=== PATIENT | female | born 1955 | race Caucasian/White ===

== ENCOUNTER 2018-07-22 09:52 | Inpatient (IN) | payer BC, OTHER ==
[~2018-07-22] VITALS: Ht 157.5 cm; Wt 101.2 kg
[~2018-07-22 09:52] MED LIST: ASPIRIN LOW DOS81 MG PO; Z COREG PO; Z.0.ATORVASTATIN CA2; Z.0.CENTRUM SILVER1 PO; Z.0.FUROSEMIDE20 MG PO; Z.0.LISINOPRIL5 MG PO; Z.0.NEXIUM40 MG PO; Z.0.ONGLYZA5 MG PO; Z.0.TRICOR145 MG PO; Z.1.METFORMIN HCL100 PO; [UNRECOGNIZED DRUG - OTHER]
[2018-07-22 11:34] LABS: BASOPHILS # (AUTO) 0.1 (0.0-0.1); BASOPHILS % 0.5 % (0.0-1.0); EOSINOPHILS # (AUTO) 0.1 (0.0-0.4); EOSINOPHILS % 0.4 % (0.0-6.0); HEMATOCRIT 39.2 % (34.2-44.1); HEMOGLOBIN 12.6 g/dL (12.0-16.0); LYMPHOCYTES # (AUTO) 1.4 (1.0-3.2); MEAN CORPUSCULAR HEMOGLOBIN 27.9 pg (28-32); MEAN CORPUSCULAR HGB CONC 32.1 g/dL (31-35); MEAN CORPUSCULAR VOLUME 86.7 fL (81-99); MONOCYTES # (AUTO) 1.4 (0.2-0.8); MONOCYTES % 9.2 % (4.4-11.3); NEUTROPHILS # (AUTO) 12.4 (2.1-6.9); NEUTROPHILS % 80.4 % (38.7-80.0); PLATELET COUNT 431 x10e3/uL (140-360); RED BLOOD COUNT 4.52 x10e6/uL (3.6-5.1); RED CELL DISTRIBUTION WIDTH 13.5 % (11.7-14.4)
[2018-07-22 11:36] LABS: BILIRUBIN,URINE SMALL (NEGATIVE); CLARITY,URINE SL CLOUDY (CLEAR); COLOR,URINE ORANGE (YELLOW); KETONES,URINE TRACE (NEGATIVE); LEUKOCYTE ESTERASE ,URINE SMALL (NEGATIVE); NITRITE,URINE NEGATIVE (NEGATIVE); PROTEIN,URINE DIPSTICK 2+ (NEGATIVE); URINE UROBILINOGEN 1 mg/dL (0.2 - 1)
[2018-07-22 11:51] LABS: BACTERIA,URINE MODERATE /HPF; EPITHELIAL CELLS,URINE FEW /LPF
[2018-07-22 11:52] LABS: ALANINE AMINOTRANSFERASE 52 IU/L (0-55); ALBUMIN/GLOBULIN RATIO 0.6 (0.8-2.0); ALKALINE PHOSPHATASE 167 IU/L (40-150); AMORPHOUS SEDIMENT,URINE FEW (FEW); ANION GAP 13.5 mmol/L (8-16); BLOOD UREA NITROGEN 21 mg/dL (7-26); BUN/CREATININE RATIO 15 (6-25); CALCIUM 10.5 mg/dL (8.4-10.2); CARBON DIOXIDE 24 mmol/L (22-29); CHLORIDE 100 mmol/L (98-107); CREATINE KINASE 32 IU/L (29-168); CREATININE, SERUM 1.42 mg/dL (0.57-1.11); EST GLOMERULAR FILTRATION RATE 37 ML/MIN (60-); GLUCOSE 105 mg/dL (74-118); POTASSIUM 4.5 mmol/L (3.5-5.1); SODIUM 133 mmol/L (136-145)
[2018-07-22 11:59] LABS: INFLUENZAE A&B ANTIGEN (RAPID) NEGATIVE (NEGATIVE); STREPTOCOCCUS GRP A ANTIGEN NEGATIVE (NEGATIVE)
[2018-07-22] MEDS ORDERED: SODIUM CHLORIDE 0.9% 1000ML 1,000 ML IV ONE ×2 (12:00→15:00)
--- NOTE | 2018-07-22 12:02 | Diagnostic Imaging Report ---
Chest, 2 views, 07/22/2018. History: Cough and congestion. Comparison: None available. Findings: Cardiac silhouette is enlarged but the pulmonary vasculature is within normal limits. The lungs are clear without evidence of consolidation or pleural effusion. Degenerative changes are present throughout the thoracic spine. There are no acute osseous or soft tissue abnormalities. Impression: Cardiomegaly without acute pulmonary abnormality. Signed by: Arian Marquez on 07/22/2018 11:58 AM
--- NOTE | 2018-07-22 13:29 | NUR ---
PT STATES SHE HAS A HISTORY OF A FIB AND DID NOT TAKE ANY OF HER MEDICATIONS TODAY
[2018-07-22] MEDS ORDERED: CEFTRIAXONE SOD 1 GM/NS 50 ML 50 ML IV ONE (14:15)
--- NOTE | 2018-07-22 14:21 | Diagnostic Imaging Report ---
EXAMINATION: CT of the abdomen and pelvis with contrast. TECHNIQUE: Spiral CT images of the abdomen and pelvis were performed from the lung bases to the lesser trochanters after the intravenous administration of 100 cc Isovue-370. Coronal and sagittal reformatted images were obtained. COMPARISON: Chest radiograph same day CLINICAL HISTORY:Abdominal pain DISCUSSION: ABDOMEN/PELVIS: LOWER THORAX:Unremarkable. HEPATOBILIARY: No focal hepatic lesions. No intra-or extrahepatic biliary ductal dilation. The gallbladder has been removed. SPLEEN: No splenomegaly. PANCREAS: No focal masses or ductal dilatation. ADRENALS: No adrenal nodules. KIDNEYS/URETERS: Multiple wedge-shaped foci of hypoattenuation in the left kidney with associated perinephric fat stranding. Exophytic subcentimeter hypoattenuating lesion is too small to further characterize but likely represent small cysts. No hydronephrosis. No calculi. The right kidney is unremarkable. PELVIC ORGANS/BLADDER: Urinary bladder is incompletely distended but otherwise unremarkable. Uterus is neutral in position and appears normal. No adnexal mass. PERITONEUM/RETROPERITONEUM: No free air or fluid. LYMPH NODES: No pelvic sidewall, retroperitoneal, or mesenteric lymphadenopathy. VESSELS: Abdominal aorta, major branch vessels, and iliac arterial systems are patent without aneurysmal dilatation. Portal vein, splenic vein, and central superior mesenteric vein are patent. GI TRACT: The large bowel shows no distention or wall thickening. There are a few diverticula scattered along the descending and sigmoid colon without adjacent inflammatory change. Appendix is normal. The stomach is collapsed with prominence of the rugal folds. No small bowel dilatation to suggest obstruction. BONES AND SOFT TISSUE: No osseous destructive lesions. Mild degenerative disc changes and facet arthropathy of the lumbar spine. No focal soft tissue abnormalities. IMPRESSION: Findings suggestive of left pyelonephritis. Correlate with urinalysis. A follow-up CT abdomen with and without contrast (renal protocol) is suggested in 3 months to exclude presence of underlying mass lesion. Large bowel diverticulosis without findings of diverticulitis. Signed by: Dr. Cayetano Vyas M.D. on 07/22/2018 2:18 PM
[2018-07-22] MEDS ORDERED: SODIUM CHLORIDE 0.9% 1000ML 1,000 ML ONE (14:51)
[2018-07-22] MEDS: SODIUM CHLORIDE 0.9% 1000ML 1,000 ML IV SCH (15:13)
[2018-07-22] MEDS ORDERED: ONDANSETRON HCL INJ 2MG/ML 2ML 2 MG/ML VIAL IV PRN (15:15)
[2018-07-22] MEDS ORDERED: SODIUM CHLORIDE 0.9% 50ML 50 ML ONE (15:34)
[2018-07-22] MEDS ORDERED: IOPAMIDOL 370 MG/ML 200 ML INFUS..BTL INJ ONE (15:35)
--- OUTSIDE RECORDS SUMMARY | 2018-07-22 16:20 | XMS REPORT ---
[facility] Address Unknown Phone Unavailable Care Team Providers Care Funeral Director'S Assistant Name Role Phone lEia HARRISON Unavailable Unavailable Problems This patient has no known problems. Allergies, Adverse Reactions, Alerts This patient has no known allergies or adverse reactions. Medications This patient has no known medications. Results Test Description Test Time Test Comments Text Results Atomic Results Result Comments CT ABDOMEN/PELVIS W 2018-07-22 14:10:00 [place] [address] Patient Name: ANA VASQUES MR #: [id number] : 1955 Age/Sex: 62/F Req #: [id number] Adm Physician: Ordered by: SUKHWINDER BROWN HEDGE TRIMMER Report #: [id number] Location: ER Room/Bed: Procedure: [id number] CT/CT ABDOMEN/PELVIS W Exam Date: 07/22/18 Exam Time: 1340 REPORT STATUS: Signed EXAMINATION: CT of the abdomen and pelvis with cont rast. TECHNIQUE: Spiral CT images of the abdomen and pelvis were performed from the lung bases to the lesser trochanters after the intravenous administration of 100 cc Isovue-370. Coronal and sagittal reformatted images were obtained. COMPARISON: Chest radiograph same day CLINICAL HISTORY:Abdominal pain DISCUSSION: ABDOMEN/PELVIS: LOWER THORAX:Unremarkable. HEPATOBILIARY: No focal hepatic lesions. No intra-or extrahepatic biliary ductal dilation. The gallbladder has been removed. SPLEEN: No splenomegaly. PANCREAS: No focal masses or ductal dilatation. ADRENALS: No adrenal nodules. KIDNEYS/URETERS: Multiple wedge-shaped foci of hypoattenuation in the left kidney with associated perinephric fat stranding. Exophytic subcentimeter hypoattenuating lesion is too small to further characterize but likely represent small cysts. No hydronephrosis. No calculi. The right kidney is unremarkable. PELVIC ORGANS/BLADDER: Urinary bladder is incompletely distended but otherwise unremarkable. Uterus is neutral in position and appears normal. No adnexal mass. PERITONEUM/RETROPERITONEUM: No free air or fluid. LYMPH NODES: No pelvic sidewall, retroperitoneal, or mesenteric lymphadenopathy. VESSELS: Abdominal aorta, major branch vessels, and iliac arterial systems are patent without aneurysmal dilatation. Portal vein, splenic vein, and central superior mesenteric vein are patent. GI TRACT: The large bowel shows no distention or wall thickening. There are a few diverticula scattered along the descending and sigmoid colon without adjacent inflammatory change. Appendix is normal. The stomach is collapsed with prominence of the rugal folds. No small bowel dilatation to suggest obstruction. BONES AND SOFT TISSUE: No osseous destructive lesions. Mild degenerative disc changes and facet arthropathy of the lumbar spine. No focal soft tissue abnormalities. IMPRESSION: Findings suggestive of left pyelonephritis. Correlate with urinalysis. A follow-up CT abdomen with and without contrast (renal protocol) is suggested in 3 months to exclude presence of underlying mass lesion. Large bowel diverticulosis without findings of diverticulitis. Signed by: Dr. Lauri Webb M.D. on 07/22/2018 2:18 PM Dictated By: LAURI WEBB MD [id number] Transcribed By: ABIMAEL on 07/22/18 1418 COPY TO: SUKHWINDER BROWN NP CHEST 2 VIEWS 2018-07-22 11:58:00 [place] [address] Patient Name: ANA VASQUES MR #: [id number] : 1955 Age/Sex: 62/F Req #: [id number] Adm Physician: Ordered by: MELA HARRISON MD Report #: [id number] Location: ER Room/Bed: Procedure: [id number] DX/CHEST 2 VIEWS Exam Date: 07/22/18 Exam Time: 1110 REPORT STATUS: Signed Chest, 2 views, 07/22/2018. History: Cough and congestion. Comparison: None available. Findings: Cardiac silhouette is enlarged but the pulmonary vasculature is within normal limits. The lungs are clear without evidence of consolidation or pleural effusion. Degenerative changes are present throughout the thoracic spine. There are no acute osseous or soft tissue abnormalities. Impression: Cardiomegaly without acute pu lmonary abnormality. Signed by: Arian Marquez on 07/22/2018 11:58 AM Dictated By: ARIAN MARQUEZ MD 1158 Transcribed By: ABIMAEL on 07/22/18 1159 COPY TO: MELA HARRISON MD
--- NOTE | 2018-07-22 16:50 | NUR ---
Received patient aaox3, family at bedside, patient on room air, no s/s of distress, fluids running at 125ml/hr, IVs on both AC without any complications. Helped transfer to recliner from wheelchair. Call kilgore within reach.
[2018-07-22 17:26] VITALS: BP 103/57
[2018-07-22] MEDS ORDERED: METOPROLOL TARTRATE INJ 1 MG/ML VIAL IV PRN (17:30)
[2018-07-22] MEDS ORDERED: CEFEPIME 1GM/NS 0.9% 50 ML 50 ML IV SCH (17:30)
[2018-07-22] MEDS ORDERED: DEXTROSE 50% SYRINGE 50 ML IV PRN (17:30)
[2018-07-22] MEDS ORDERED: DOCUSATE SODIUM 100 MG CAP PO PRN (17:30)
[2018-07-22] MEDS ORDERED: ACETAMINOPHEN 325 MG TAB PO PRN (17:30)
[2018-07-22] MEDS ORDERED: ONDANSETRON HCL 4 MG ORAL DISINTEGRATING TAB PO PRN (18:00)
[2018-07-22] MEDS: PIPER-TAZ 3.375 GM 50 ML IV SCH (18:33)
[2018-07-22] MEDS ORDERED: TRADJENTA5 MG PO (18:47)
[2018-07-22] MEDS ORDERED: LISINOPRIL10 MG PO (18:47)
[2018-07-22] MEDS ORDERED: GLIMEPIRIDE2 MG PO (18:47)
[2018-07-22] MEDS ORDERED: SYNTHROID50 MCG PO (18:47)
[2018-07-22] MEDS ORDERED: FUROSEMIDE20 MG PO (18:47)
[2018-07-22] MEDS ORDERED: FENOFIBRATE145 MG PO (18:47)
[2018-07-22] MEDS ORDERED: GLUCOSAMINE1000 MG PO (18:47)
[2018-07-22] MEDS ORDERED: ULORIC40 MG PO (18:47)
[2018-07-22] MEDS ORDERED: NEXIUM40 MG PO (18:47)
[2018-07-22] MEDS ORDERED: METFORMIN HCL500 MG PO (18:47)
[2018-07-22] MEDS ORDERED: eliquis PO (18:47)
--- NOTE | 2018-07-22 18:50 | NUR ---
PATIENT IS LAYING IN BED RESTING WITH EYES OPENED. NO S/S OF DISTRESS. EXPLAINED TO PATIENT TO ASK FOR ASSISTANCE WHEN NEEDED. SIDE RAILS UP X2, CALL GORE WITHIN REACH, AND BED IN LOWEST POSITION.
--- NOTE | 2018-07-22 19:15 | NUR ---
Rounding done & report received. Patient is resting in bed comfortably. Respirations even & unlabored, no distress noted. IV fluids running to R AC, patent & no infiltration noted. Patient requested to have L AC IV removed, advised patient to leave it in place just in case other IV goes bad, patient agreed to leave it in place. Patient c/o H/A, rates pain level 4/10, describes it as a throbbing pain. Will check emar if any pain meds are available. Call light within reach, side rails x2 raised & bed set to lowest position.
[2018-07-22 20:00] VITALS: BP 98/55
--- NOTE | 2018-07-22 20:11 | History and Physical ---
PRESENTING COMPLAINT: Generalized weakness with numbness of both hands and feet for 3 days, got worsened today with mild abdominal pain. HISTORY OF PRESENT ILLNESS: A 62-year-old female, who was admitted from ER. The patient was sent to ER from the office of her PCP, Dr. Mars Ramsey. The patient tells that she was feeling unusually weak with mild numbness in her hands and feet since 3 days ago. Symptoms were off and on. Today, she felt more weak with discomfort in her abdomen. The patient denied any high spiking fever, chills, or rigor at home. She also denied any nausea, vomiting, or diarrhea. She had normal bowel movement today. She also denied any dysuria or hematuria. The patient told that she had dyspepsia affecting whole abdomen this morning for which she went to see her PCP. They found she had UTI, sent her to the ER. The patient was found having low grade fever with leukocytosis of 15,000. The patient had CT of the abdomen and pelvis with contrast, which was suggestive of left pyelonephritis. Urinalysis showed wbc more than 11 and the rbc also more than 11. The patient denied any similar episode in the past. She does not have any history of nephrolithiasis as per the patient's statement. The patient is now sitting in chair at bedside. She has multiple comorbidities including diabetes, hypertension, CHF, and chronic atrial fibrillation. The patient's EKG showed AFib with RVR more than 140 beats per minute. The patient follows up with her regular Cardiology, Dr. Walden, who does not come to this hospital. REVIEW OF SYSTEMS: CONSTITUTIONAL: No fever, chills, or rigor. EYES AND ENT: No nasal congestion. No sore throat. No earache. No visual disturbance. CARDIOVASCULAR: No chest pain, palpitation, or shortness of breath. PULMONARY: No cough. No hemoptysis. GI: Diffuse abdominal discomfort. No nausea. No vomiting. No diarrhea. No episode of bloody stool or black stool. : No dysuria. No hematuria. MUSCULOSKELETAL/SKIN/LYMPHORETICULAR: The patient felt numbness in the hands and feet for last 3 days. No joint swelling. No joint pain. No skin rash. No swollen glands. NEUROLOGIC: No loss of consciousness, seizures, or headache. HISTORY OF PAST MEDICAL ILLNESS: Diabetes mellitus type 2, hypertension, hyperlipidemia, probable CAD, CHF, and chronic atrial fibrillation on Eliquis. No history of acute CO, stroke, or cancer as per the patient's statement. Osteoporosis and osteoarthritis. HISTORY OF PAST SURGERIES: Laparoscopic cholecystectomy in remote past, tubal ligation, and right foot closed reduction for fracture from accidental fall. No other history of surgery. Colonoscopy done less than 5 years ago at this hospital by Dr. Mcneil as per the patient's statement. ALLERGIES: NO KNOWN MEDICATION ALLERGIES. HOME MEDICATIONS: List includes: 1. Coreg CR 10 mg daily. 2. Atorvastatin 20 mg daily. 3. Fenofibrate 145 mg daily. 4. Furosemide 20 mg daily. 5. Aspirin 81 mg daily. 6. Nexium 40 mg daily. 7. Lisinopril 5 mg daily. 8. Metformin 1000 mg b.i.d. 9. Onglyza 5 mg daily. 10. Glimepiride 1 mg daily. 11. Ferrous sulfate 142 mg daily. SOCIAL HISTORY: The patient lives at home at [place], [place] with her . She has 3 adult offsprings. She works as check cashier in a food store. HABITS: Denies smoking, drinking, or substance abuse history. FAMILY HISTORY: The patient's mother of breast cancer in her 40's. Her father of old age. Her brothers and sisters are alive and healthy. No positive family history of kidney stone as per the patient's statement. HEALTH PROTECTION: Colonoscopy less than 5 years ago. Mammogram after the flue shot, not this season. PHYSICAL EXAMINATION: VITAL SIGNS: Today; BP 106/60, now 93/99, pulse 129 beats per minute at presentation, temperature 99.3, respirations 20s, and SpO2 95% at room air. GENERAL: Alert, not in acute distress now, sitting at bedside. HEENT: No pallor. No icterus. Oral mucosa moist. NECK: No JVD. No carotid bruit. No lymphadenopathy. No thyromegaly. HEART: S1 and S2, irregular. No murmur. LUNGS: Air entry equal on both sides. No crackles. No rhonchi. ABDOMEN: Soft. No rebound tenderness. Mild diffuse tenderness. No flank tenderness. No palpable masses. Bowel sounds active in all quadrants. EXTREMITIES: No edema, cyanosis, or clubbing. NEUROLOGIC: Muscle strength symmetric on both sides. Speech normal. LABORATORY DATA: EKG, atrial fibrillation at the rate of 129 beats per minute. CBC; WBC 15.3, hemoglobin 12.6, hematocrit 39.2, platelets 432, MCV 86, RDW 13, neutrophils 80, and lymphocytes 9. Chemistry panel; sodium 133, potassium 4.5, chloride 100, CO2 24, anion gap 9, BUN 21, creatinine 1.42, glucose 105, lactic acid 6.6, calcium 10.5, total bilirubin 1.1, AST 65, ALT 52, and alkaline phosphatase 167. CK 32, CK-MB 0.3. Troponin 0.001. Total protein 8.1, albumin 3.0, and globulin 5.1. Urinalysis; glucose 3+, ketone trace, protein 2+, nitrite negative, leukocyte esterase small, wbc 11 to 20, rbc 11 to 20, bacteria moderate. Influenza screening negative. MICROBIOLOGICAL DATA: Blood culture in progress. Urine culture pending. RADIOLOGICAL DATA: X-ray of chest, single view, cardiomegaly. Pulmonary vasculature within normal limits. Lungs clear without evidence of consolidation or pleural effusion. Degenerative changes in the spine. No acute osseous or soft tissue abnormalities. CT of the abdomen and pelvis with IV contrast multiple wedge-shaped foci of hypoattenuation in the left kidney with associated perinephric fat stranding, exophytic subcentimeter hypoattenuating lesion is too small to further characterize, but likely represents small cysts. No hydronephrosis. No calculi. Right kidney is unremarkable. Urinary bladder is completely distended and unremarkable. Uterus is neutral in position. No adnexal mass. Few diverticula scattered in descending and sigmoid colon without any inflammatory change. No focal hepatic lesion. No intra or extrahepatic biliary ductal dilatation. Gallbladder has been removed. Findings suggestive of left pyelonephritis, large bowel diverticulosis without diverticulitis. ASSESSMENT AND PLAN: 1. Abdominal discomfort with leukocytosis and nausea likely secondary to left pyelonephritis. Urinalysis is suggestive of urinary tract infection. CT abdomen is positive for left kidney pyelonephritis. We will continue the patient on IV antibiotics. Follow the urine and blood culture report. Would request Urology evaluation by Dr. Cain. 2. Urinary tract infection, likely secondary to pyelonephritis and infection. We will monitor for now. Keep the patient on IV fluids. 3. Hypotension. The patient's lactic acid level is normal. She is afebrile now, has low-grade temperature in the morning. We will keep the patient on IV normal saline for now. 4. Chronic atrial fibrillation with rapid ventricular rate. The patient's extension edger Dr. Walden does not come to this hospital. Her troponin level is normal. Would continue her regular medication. Continue telemetry. Would request Cardiology evaluation by Dr. Barak Ramsey for now. 5. Diabetes mellitus, type 2. Would hold metformin due to acute kidney injury. Continue the patient's sliding scale insulin. Check hemoglobin A1c. 6. Elevated liver enzymes. The patient is status post cholecystectomy. CT of the abdomen does not show any liver lesion, likely related to fatty liver. 7. Hyperlipidemia. Continue the patient's regular medication. 8. GI prophylaxis. Keep the patient on regular Nexium. 9. Congestive heart failure by history. Would hold furosemide for now due to acute kidney injury and chest x-ray negative for any Pulmonary congestion. 10. Discharge planwould depend upon the patient's response to treatment. 11. Advance directive, the patient is full code for now. MD DINO Corey/MARLIN /[id number]
[2018-07-22 20:56] LABS: CREATINE KINASE MB 0.2 ng/mL (0-5.0)
[2018-07-22] MEDS: METOPROLOL TARTRATE 25 MG TAB PO SCH (21:00)
[2018-07-22] MEDS: INSULIN LISPRO 100 UNIT/1 ML 3ML VIAL SQ SCH (21:00)
--- NOTE | 2018-07-22 21:50 | NUR ---
Blood glucose was noted to be at 56, sandwich, mariann crackers & orange juice was provided.
[2018-07-22] MEDS: ATORVASTATIN 20 MG TAB PO SCH (21:58)
--- NOTE | 2018-07-22 22:00 | NUR ---
Spoke w/ Dr. Marcin Ramsey in regards to patient's low BP, informed him SB has been running in the 80's & DB in the 50's, also informed him patient continues to run AFib between the low 100's up to high 130's. Did hold scheduled metoprolol. No new orders received, just advised to keep patient on fluids and continue to monitor patient.
[2018-07-23] VITALS (8 sets, daily range): BP systolic 77–116; BP diastolic 54–72
[2018-07-23] MEDS: SODIUM CHLORIDE 0.9% 1000ML 1,000 ML IV SCH ×4 (00:30→22:08)
[2018-07-23] MEDS: PIPER-TAZ 3.375 GM 50 ML IV SCH ×4 (00:30→17:10)
[2018-07-23] MEDS ORDERED: CEFTRIAXONE SOD 1 GM/NS 50 ML 50 ML IV SCH (02:00)
[2018-07-23 07:21] LABS: BASOPHILS % 0.4 % (0.0-1.0); EOSINOPHILS # (AUTO) 0.1 (0.0-0.4); HEMATOCRIT 33.4 % (34.2-44.1); HEMOGLOBIN 10.6 g/dL (12.0-16.0); LYMPHOCYTES % 8.6 % (18.0-39.1); MEAN CORPUSCULAR HEMOGLOBIN 27.9 pg (28-32); MEAN CORPUSCULAR HGB CONC 31.7 g/dL (31-35); MEAN CORPUSCULAR VOLUME 87.9 fL (81-99); MONOCYTES % 8.7 % (4.4-11.3); NEUTROPHILS # (AUTO) 9.2 (2.1-6.9); NEUTROPHILS % 80.7 % (38.7-80.0); PLATELET COUNT 355 x10e3/uL (140-360); RED CELL DISTRIBUTION WIDTH 13.6 % (11.7-14.4)
[2018-07-23] MEDS: INSULIN LISPRO 100 UNIT/1 ML 3ML VIAL SQ SCH ×5 (07:30→21:00)
--- NOTE | 2018-07-23 07:30 | NUR ---
Patient is laying down with no s/s of distress. Patient on room air, IVs to both AV dry and intact. Fluids running. Bed in lowest position, side rails up x2, call kilgore within reach.
[2018-07-23 07:31] LABS: INR 1.11; PROTHROMBIN TIME 14.8 seconds (11.9-14.5)
[2018-07-23 07:37] LABS: ALBUMIN 2.3 g/dL (3.5-5.0); ALBUMIN/GLOBULIN RATIO 0.5 (0.8-2.0); ANION GAP 10.9 mmol/L (8-16); CALCIUM 8.8 mg/dL (8.4-10.2); CREATININE, SERUM 0.97 mg/dL (0.57-1.11); POTASSIUM 3.9 mmol/L (3.5-5.1)
[2018-07-23 07:47] LABS: MAGNESIUM 1.3 MG/DL (1.3-2.1); PHOSPHORUS 2.3 MG/DL (2.3-4.7)
[2018-07-23 07:55] LABS: B-TYPE NATRIURETIC PEPTIDE2 229.3 pg/mL (0-100)
[2018-07-23 07:59] LABS: FREE T4 (FREE THYROXINE) 1.09 ng/dL (0.9-1.8); THYROID STIMULATING HORMONE 0.997 uIU/mL (0.350-4.940)
[2018-07-23 08:03] LABS: CREATINE KINASE 27 IU/L (29-168)
[2018-07-23] MEDS ORDERED: LUT PO SCH (09:00)
[2018-07-23] MEDS ORDERED: NON-FORMULARY MEDICATION (Esomeprazole Mag Trihydrate (Nexium) 40 MG) PO SCH (09:00)
[2018-07-23] MEDS ORDERED: MULTIVITAMINS W MINERALS PO SCH (09:00)
[2018-07-23] MEDS ORDERED: ASPIRIN 81 MG PO SCH (09:00)
[2018-07-23] MEDS: SAXAGLIPTIN HCL PO SCH (09:00)
[2018-07-23] MEDS: MULTIVITAMINS/MINERALS TAB PO SCH (09:35)
[2018-07-23] MEDS: PANTOPRAZOLE SOD 40 MG TABEC PO SCH (09:35)
[2018-07-23] MEDS: ASPIRIN 81 MG CHEW TAB PO SCH (09:35)
[2018-07-23] MEDS: FENOFIBRATE 145 MG TAB PO SCH (09:35)
[2018-07-23] MEDS: METOPROLOL TARTRATE 25 MG TAB PO SCH ×2 (09:35→19:30)
[2018-07-23] MEDS: APIXABAN 5 MG TABLET PO SCH ×2 (09:35→17:10)
--- NOTE | 2018-07-23 10:29 | Consultation ---
DATE OF CONSULTATION: 07/23/2018 Urology Consultation REASON FOR CONSULTATION: Pyelonephritis. HISTORY OF PRESENT ILLNESS: Hilary Villegas is a 62-year-old woman with a history of chronic microhematuria. She has never had a workup due to being too busy. The patient had what she thought was food poisoning. She reported that when that improved, the patient still had symptomatology and left flank discomfort. She reported to the emergency room, was admitted, was evaluated and admitted. The patient denies any spiking fevers, also having urinary tract infection in the primary physician's office. She reports both urge and stress type urinary incontinence. PAST MEDICAL AND SURGICAL HISTORY: 1. Diabetes mellitus. 2. Hypertension. 3. Congestive heart failure. 4. Chronic atrial fibrillation. 5. Osteoporosis. 6. Osteoarthritis. 7. Laparoscopic cholecystectomy. 8. Status post tubal ligation. 9. Right foot closed reduction for fracture from a fall. 10. Status post colonoscopy. 11. 4, para 3, with one child being born stillborn, all by vaginal delivery. FAMILY HISTORY: Noncontributory to the active urological problems. SOCIAL HISTORY: The patient denies smoking, ethanol, or drug use. She works as a front window cashier. She is . REVIEW OF SYSTEMS: Discussed as above in history of present illness and past medical history, otherwise negative for all systems. ALLERGIES: NONE KNOWN. CURRENT MEDICATIONS: Please refer the MAR. PHYSICAL EXAMINATION: GENERAL: Very pleasant woman sitting up in a chair eating breakfast. No apparent distress. VITAL SIGNS: She is currently afebrile. Her vital signs are currently stable. ABDOMEN: Soft, nondistended, nontender except slight discomfort in the left flank without true costovertebral angle tenderness. Kidneys are not palpable without hepatosplenomegaly. The patient is obese. For the remaining physical examination systems, please refer to the admission history and physical on the chart. LABORATORY STUDIES: White blood cell count is 11,340, hemoglobin 10.6, and platelets were 355,000. The patient did have a higher white blood cell count at 15,360 upon admission. The patient's sodium was slightly low at 135. Hemoglobin A1c is 7.8. Creatinine is normal at 0.97. Urinalysis is significant for 11 to 20 WBCs, 11 to 20 RBCs, moderate bacteria and few epithelial cells. CT scan of the abdomen and pelvis revealed left renal cyst and signs of left pyelonephritis. The patient's prior creatinine was 1.42. ASSESSMENT: 1. Left pyelonephritis. 2. Microhematuria. 3. Leukocytosis that is improving. 4. Obesity. 5. Anemia. 6. Hyponatremia that is improving. 7. Left renal cyst. 8. Acute renal failure that is improved. PLAN: 1. Intravenous antibiotics. 2. Awaiting urine cultures and blood cultures. 3. The patient will need ongoing urological followup. 4. The patient at some point will need cystoscopy and retrograde pyelograms. 5. Further imaging will need to be performed after several months to ensure the patient's kidneys heal completely. 6. Renal scanning may also be warranted as this type of condition can cause decrease in renal function. Thank you very much for involving us in the care of your patient. We will be happy to follow her along with you as well as an outpatient. Jair Cain MD [place]/MODL /[id number] cc: Yovanny Ramsey MD
--- NOTE | 2018-07-23 14:15 | NUR ---
Notified Tio Ramsey about patient HR being between 120-130's. He stated he is going to come see her to adjust her medications.
[2018-07-23 15:50] LABS: CREATINE KINASE 32 IU/L (29-168)
[2018-07-23] MEDS ORDERED: SODIUM CHLORIDE 0.9% 1000ML 1,000 ML ONE (17:04)
[2018-07-23] MEDS ORDERED: DIGOXIN INJ 0.25 MG/ML 2 ML AMP IV NR (18:15)
[2018-07-23] MEDS ORDERED: METOPROLOL TARTRATE 25 MG TAB PO SCH (18:15)
--- NOTE | 2018-07-23 18:25 | NUR ---
PATIENT IS LAYING DOWN RESTING WITH EYES OPENED. AT BEDSIDE. SIDE RAILS UP X2, CALL GORE WITHIN REACH, AND BED IN LOWEST POSITION. NO S/S OF DISTRESS.
--- NOTE | 2018-07-23 18:45 | Consultation ---
DATE OF CONSULTATION: 07/23/2018 Cardiology Consult Note REASON FOR CONSULT: AFib with RVR. CHIEF COMPLAINT: Abdominal pain and dysuria. HISTORY OF PRESENT ILLNESS: The patient is a 62-year-old female with history of paroxysmal atrial fibrillation, who presented with 2-day history of worsening abdominal pain and some dysuria, was found to have pyelonephritis with fever, elevated white count, and hypotension, concerning for sepsis. Yesterday evening, she went into AFib with RVR after admission. She has history of atrial fibrillation, which is paroxysmal. She also reports history of bradycardia when she is in normal sinus rhythm, which she has had for a long time. She was only taking low-dose of carvedilol at home along with Eliquis 5 mg b.i.d. for anticoagulation. Denies any history of any stents, CAD, or any other cardiovascular issues. She is followed by Dr. Walden and she has had yearly stress tests, which have been essentially normal. She had a catheterization many years ago, which she reports being normal. MEDICAL HISTORY: 1. Hypertension. 2. Hyperlipidemia. 3. Paroxysmal atrial fibrillation, on anticoagulation. SOCIAL HISTORY: She does not smoke, drink, or abuse drugs. FAMILY HISTORY: No family history of early CAD or sudden cardiac . OUTPATIENT MEDICATIONS: Reviewed. ALLERGIES: NO KNOWN DRUG ALLERGIES. REVIEW OF SYSTEMS: A 10-point review of systems as per HPI, otherwise negative. PHYSICAL EXAMINATION: VITAL SIGNS: Temperature 100.7, pulse 130, respiratory rate 20, blood pressure 116/56, and saturating 99% on room air. GENERAL: Obese white female, in no acute distress. CARDIOVASCULAR: Irregular rate and rhythm. No murmurs, rubs, or gallops. Tachycardic. LUNGS: Clear to auscultation bilaterally. ABDOMEN: Soft, nontender, nondistended. NEURO AND PSYCH: Alert and oriented to person, place, and time. Normal affect. INPATIENT MEDICATIONS: Reviewed. LABORATORY DATA: Reviewed. Troponins negative. Elevated white count of 15.36. IMAGING DATA: Reviewed. Chest x-ray without any cardiomegaly or pulmonary edema. TELEMETRY DATA: Reviewed, shows AFib with RVR, rates as high as 170s. ASSESSMENT: Atrial fibrillation with rapid ventricular response. PLAN: Increase dose of metoprolol to 25 mg q.6 hours. We will also start digoxin, already given dose of IV digoxin overnight. We will continue to finish digoxin load today and start 125 mcg daily starting tomorrow. Continue antibiotic therapy per primary team. We will resume home Eliquis. Thank you for this consult. We will continue to follow. MD SAQIB Bennett/JESSIEL /[id number]
--- NOTE | 2018-07-23 20:00 | NUR ---
Received change of shift report from AM nurse. Walking rounds completed.
[2018-07-23] MEDS: ATORVASTATIN 20 MG TAB PO SCH (21:00)
[2018-07-24] VITALS (8 sets, daily range): BP systolic 95–117; BP diastolic 55–69
[2018-07-24] MEDS: METOPROLOL TARTRATE 25 MG TAB PO SCH ×4 (01:00→17:13)
[2018-07-24] MEDS: SODIUM CHLORIDE 0.9% 1000ML 1,000 ML IV SCH ×3 (04:48→16:02)
[2018-07-24 05:34] LABS: BASOPHILS # (AUTO) 0.1 (0.0-0.1); BASOPHILS % 0.6 % (0.0-1.0); EOSINOPHILS # (AUTO) 0.1 (0.0-0.4); HEMATOCRIT 32.2 % (34.2-44.1); HEMOGLOBIN 10.5 g/dL (12.0-16.0); LYMPHOCYTES # (AUTO) 1.2 (1.0-3.2); LYMPHOCYTES % 10.1 % (18.0-39.1); MEAN CORPUSCULAR HEMOGLOBIN 28.2 pg (28-32); MEAN CORPUSCULAR HGB CONC 32.6 g/dL (31-35); MEAN CORPUSCULAR VOLUME 86.3 fL (81-99); MONOCYTES # (AUTO) 1.1 (0.2-0.8); MONOCYTES % 9.3 % (4.4-11.3); NEUTROPHILS # (AUTO) 9.1 (2.1-6.9); NEUTROPHILS % 78.6 % (38.7-80.0); PLATELET COUNT 416 x10e3/uL (140-360); RED BLOOD COUNT 3.73 x10e6/uL (3.6-5.1); RED CELL DISTRIBUTION WIDTH 13.7 % (11.7-14.4)
[2018-07-24] MEDS: PIPER-TAZ 3.375 GM 50 ML IV SCH ×4 (05:43→17:13)
[2018-07-24 06:03] LABS: ALANINE AMINOTRANSFERASE 62 IU/L (0-55); ALBUMIN 2.4 g/dL (3.5-5.0); ALBUMIN/GLOBULIN RATIO 0.5 (0.8-2.0); ALKALINE PHOSPHATASE 198 IU/L (40-150); ANION GAP 12.2 mmol/L (8-16); BLOOD UREA NITROGEN 10 mg/dL (7-26); BUN/CREATININE RATIO 11 (6-25); CALCIUM 9.1 mg/dL (8.4-10.2); CARBON DIOXIDE 20 mmol/L (22-29); CHLORIDE 105 mmol/L (98-107); CREATININE, SERUM 0.91 mg/dL (0.57-1.11); EST GLOMERULAR FILTRATION RATE > 60 ML/MIN (60-); GLUCOSE 140 mg/dL (74-118); LIPASE 40 U/L (8-78); POTASSIUM 4.2 mmol/L (3.5-5.1); SODIUM 133 mmol/L (136-145)
--- NOTE | 2018-07-24 06:35 | NUR ---
Patient resting quitly at this time.
--- NOTE | 2018-07-24 07:00 | NUR ---
SHIFT REPORT RECEIVED FROM CONE FORMER RN. PT DENIES NEEDS AT THIS TIME.
[2018-07-24] MEDS: INSULIN LISPRO 100 UNIT/1 ML 3ML VIAL SQ SCH ×4 (07:30→21:31)
[2018-07-24] MEDS: PANTOPRAZOLE SOD 40 MG TABEC PO SCH (08:01)
[2018-07-24] MEDS: FENOFIBRATE 145 MG TAB PO SCH (08:01)
[2018-07-24] MEDS: DIGOXIN 0.125 MG TAB PO SCH (08:02)
[2018-07-24] MEDS: APIXABAN 5 MG TABLET PO SCH ×2 (08:02→17:13)
[2018-07-24] MEDS: ASPIRIN 81 MG CHEW TAB PO SCH (08:03)
[2018-07-24] MEDS: MULTIVITAMINS/MINERALS TAB PO SCH (08:03)
[2018-07-24] MEDS: SAXAGLIPTIN HCL PO SCH (08:07)
--- NOTE | 2018-07-24 08:30 | NUR ---
LEFT AC IV REMOVED. TIP INTACT. BLEEDING STOPPED AND DRESSING APPLIED. PT DENIED FURTHER NEEDS.
[2018-07-24] MEDS ORDERED: APIXABAN 5 MG TABLET PO SCH (09:00)
[2018-07-24] MEDS: GLIMEPIRIDE 2 MG TAB PO SCH (14:00)
--- NOTE | 2018-07-24 18:24 | Progress Note ---
DATE: 07/24/2018 Cardiology Progress Note SUBJECTIVE: No major events overnight. Feels better. Continues to be in AFib with RVR. OBJECTIVE: VITAL SIGNS: Temperature afebrile, pulse 110, blood pressure 103/66, and saturating 97% on room air. GENERAL: Obese white female, in no acute distress. CARDIOVASCULAR: Irregular rate and rhythm. No murmurs, rubs, or gallops. Tachycardic. LUNGS: Clear to auscultation bilaterally. ABDOMEN: Soft, nontender, and nondistended. Obese. No masses. NEURO AND PSYCH: Alert and oriented to person, place, and time. Normal affect. INPATIENT MEDICATIONS: Reviewed. LABORATORY DATA: Reviewed. IMAGING DATA: Reviewed. TELEMETRY DATA: Reviewed. Continues to be in atrial fibrillation with RVR. Heart rate now in the 110 to 130 range. ASSESSMENT AND PLAN: Atrial fibrillation with rapid ventricular response. We will continue oral amiodarone and digoxin. Plan for MAX cardioversion tomorrow. Continue Eliquis. Thank you for this consult. We will continue to follow. MD SAQIB Bennett/MARLIN /[id number]
--- NOTE | 2018-07-24 19:00 | NUR ---
BEDSIDE SHIFT REPORT GIVEN TO THE FASHION CONSULTANT SELLING RN. PT DENIED FURTHER NEEDS.
[2018-07-24] MEDS: HC ACETATE/PRAMOXINE HCL 10 GM FOAM RC SCH (21:31)
[2018-07-24] MEDS: ATORVASTATIN 20 MG TAB PO SCH (21:31)
--- NOTE | 2018-07-24 23:03 | NUR ---
Left message with Dr Yovanny Ramsey office about new order to change admitting MD ( Spoke with Melinda)
--- NOTE | 2018-07-24 23:06 | NUR ---
Dr Yovanny Ramsey returned call: notified of new order to change admitting MD: states "okay"
[2018-07-25] VITALS (8 sets, daily range): BP systolic 95–118; BP diastolic 55–70
[2018-07-25] MEDS: PIPER-TAZ 3.375 GM 50 ML IV SCH ×4 (00:46→18:05)
[2018-07-25] MEDS: METOPROLOL TARTRATE 25 MG TAB PO SCH ×4 (00:47→18:05)
[2018-07-25] MEDS: SODIUM CHLORIDE 0.9% 1000ML 1,000 ML IV SCH ×3 (04:41→20:36)
[2018-07-25 05:32] LABS: BASOPHILS # (AUTO) 0.1 (0.0-0.1); BASOPHILS % 0.7 % (0.0-1.0); EOSINOPHILS # (AUTO) 0.3 (0.0-0.4); EOSINOPHILS % 3.2 % (0.0-6.0); HEMATOCRIT 29.5 % (34.2-44.1); HEMOGLOBIN 9.2 g/dL (12.0-16.0); LYMPHOCYTES # (AUTO) 1.1 (1.0-3.2); LYMPHOCYTES % 13.1 % (18.0-39.1); MEAN CORPUSCULAR HEMOGLOBIN 27.5 pg (28-32); MEAN CORPUSCULAR HGB CONC 31.2 g/dL (31-35); MEAN CORPUSCULAR VOLUME 88.3 fL (81-99); MONOCYTES # (AUTO) 0.8 (0.2-0.8); MONOCYTES % 10.3 % (4.4-11.3); NEUTROPHILS # (AUTO) 5.9 (2.1-6.9); NEUTROPHILS % 72.1 % (38.7-80.0); PLATELET COUNT 395 x10e3/uL (140-360); RED BLOOD COUNT 3.34 x10e6/uL (3.6-5.1); RED CELL DISTRIBUTION WIDTH 13.7 % (11.7-14.4)
[2018-07-25 05:52] LABS: ALANINE AMINOTRANSFERASE 49 IU/L (0-55); ALBUMIN 2.2 g/dL (3.5-5.0); ALBUMIN/GLOBULIN RATIO 0.5 (0.8-2.0); ALKALINE PHOSPHATASE 179 IU/L (40-150); ANION GAP 11.1 mmol/L (8-16); BLOOD UREA NITROGEN 8 mg/dL (7-26); BUN/CREATININE RATIO 10 (6-25); CARBON DIOXIDE 22 mmol/L (22-29); CHLORIDE 109 mmol/L (98-107); EST GLOMERULAR FILTRATION RATE > 60 ML/MIN (60-); GLUCOSE 130 mg/dL (74-118); POTASSIUM 4.1 mmol/L (3.5-5.1); SODIUM 138 mmol/L (136-145)
[2018-07-25] MEDS: INSULIN LISPRO 100 UNIT/1 ML 3ML VIAL SQ SCH ×4 (07:30→21:00)
[2018-07-25] MEDS: MULTIVITAMINS/MINERALS TAB PO SCH (08:55)
[2018-07-25] MEDS: DIGOXIN 0.125 MG TAB PO SCH (08:55)
[2018-07-25] MEDS: GLIMEPIRIDE 2 MG TAB PO SCH (08:55)
[2018-07-25] MEDS: PANTOPRAZOLE SOD 40 MG TABEC PO SCH (08:56)
[2018-07-25] MEDS: FENOFIBRATE 145 MG TAB PO SCH (08:56)
[2018-07-25] MEDS: APIXABAN 5 MG TABLET PO SCH ×2 (09:00→18:05)
[2018-07-25] MEDS: HC ACETATE/PRAMOXINE HCL 10 GM FOAM RC SCH ×3 (09:00→21:00)
[2018-07-25] MEDS: SAXAGLIPTIN HCL PO SCH (09:00)
[2018-07-25] MEDS ORDERED: BENZOCAINE 20% SPR 60 ML CAN ONE (11:47)
[2018-07-25] MEDS ORDERED: SODIUM CHLORIDE 0.9% 1000ML 1,000 ML ONE (11:48)
--- NOTE | 2018-07-25 12:20 | NUR ---
1205 - pt received for MAX/cardioversion from room 210, placed on bedside monitoring. pt positioned for procedure. IV site patent to right 20g right AC , VS wnl, afib rate [phone]- all responsible staff present, Timeout performed, 1210 - hurricaine spray (spray 1) to oral cavity by 1212 - hurricaine spray (spray 2) to oral cavity by MD 1214 - bite block positioned and MAX probe passed 1218- agitated saline injected for bubble study 1219 - MAX probe removed , no gross trauma or distress observed 1222 - pt cardioverted attempt #1 at 200 joules synchronized, unsuccessful 1224 - pt cardioverted attempt #2 at 200 joules synchronized, unsuccessful 1226 - defibrillator page pt cardioverted attempt #3 at 200 joules synchronized, unsuccessful 1228 - pt taken to CCL 9 for further recovery. skin inspection unremarkable.
[2018-07-25] MEDS: HYDROCORTISONE 2.5% PR CRM 1 OZ TUBE PR SCH ×2 (15:00→21:00)
--- NOTE | 2018-07-25 17:08 | Consultation ---
DATE OF CONSULTATION: Gastroenterology Consultation REFERRING PHYSICIAN: Dr. Leos. REASON FOR CONSULTATION: Rectal bleeding and anemia. HISTORY OF PRESENT ILLNESS: Ms. Villegas is a pleasant 62-year-old woman with below past medical history. She is awaiting cardioversion today. She is on Eliquis. She has a history of hemorrhoids, which have been going on for over 15 years. Just a couple of days now, she has been having increased bleeding from the hemorrhoids. The bleeding is separate from her stools and there is no blood in her stool or any black tarry stools. Hemoglobin has dropped from 12.6 to 9.2. She last had a colonoscopy about [address] Giles it sounds like. She does not have any abdominal pain, nausea, vomiting, or severe heartburn. PAST MEDICAL HISTORY: Diabetes, hypertension, dyslipidemia, coronary artery disease, suspected CHF, atrial fibrillation, and chronic anticoagulation. MEDICATIONS: Reviewed, please see [facility] medication reconciliation form. ALLERGIES: REVIEWED, PLEASE SEE [facility] MEDICATION RECONCILIATION FORM. REVIEW OF SYSTEMS: Twelve system review is positive for that mentioned in HPI that is unremarkable. PHYSICAL EXAMINATION: GENERAL: Calm, alert, sitting in bed. HEENT: Pupils are equal, round, and react to light. NECK: Supple. LUNGS: Clear. CARDIOVASCULAR: S1 and S2. ABDOMEN: Soft, nontender, and nondistended. Normal bowels sounds. EXTREMITIES: No clubbing, cyanosis, or edema. PSYCHIATRIC: Calm and cooperative. NEUROLOGIC: Nonfocal. HEMATOLOGIC: No bruising or adenopathy. Electronic health records reviewed for laboratory and radiologic studies as well as history. ASSESSMENT: Rectal Bleeding: It appears that she is having significant bleeding from large hemorrhoids. On review of her records from this hospital and from her H and P, that seems that she actually had been seen by Dr. Mcneil in the past and she had a colonoscopy in August 2011 in pulling up our outpatient record for Ms. Villegas. I do sign her records and a colonoscopy report from August of 2011, which showed diverticulosis and hemorrhoids only. A repeat colonoscopy in 10 years was recommended to her. Her previous colonoscopy from 2006 was the same, only diverticulosis and hemorrhoids. As she is currently not having any blood in her stool or melena or other GI complaint, we are going to say that it is likely hemorrhoidal bleeding. Going to go ahead and ask Surgery to see her regarding the hemorrhoids as they appear to be quite large per her report and would best be treated surgically. Thank you very much for asking me to see Ms. Villegas. Any questions or concerns, please do not hesitate to contact me. Cony Alaniz MD RLS/MARLIN /[id number]
--- NOTE | 2018-07-25 17:10 | NUR ---
Nutrition Screen Note RD Recommendation for Physician: -Continue ADA diet as ordered Plan of Care: RD following, monitoring for tolerance and adequacy Nutrition reason for involvement: Nutrition Risk Trigger MST Primary Diagnose(s): Left pyelonephritis. PMH: 1. Diabetes mellitus. 2. Hypertension. 3. Congestive heart failure. 4. Chronic atrial fibrillation. 5. Osteoporosis. 6. Osteoarthritis. 7. Laparoscopic cholecystectomy. 8. Status post tubal ligation. 9. Right foot closed reduction for fracture from a fall. 10. Status post colonoscopy. 11. 4, para 3, with one child being born stillborn, all by vaginal delivery. Ht: 62in Wt: 223lb BMI: 40.8kg/m2 IBW: 110lb RD Assessment: (07/25) Chart reviewed. Labs and meds reviewed. 62yo F, who was admitted for generalized weakness and abdominal pain. Visited pt in the room. Pt reported good appetite. No complains of nausea or vomiting. LBM 07/25. Pt denied any chewing or swallowing difficulty. Pt reported of 25lbs intentional weight loss through her doctor for the last few months. Will continue to monitor and follow. Current Diet: ADA 2000 Malnutrition Evaluation (07/25) The patient does not meet criteria for a specified degree of malnutrition at this time. Will re-evaluate at follow-up as appropriate. Diet Education Needs Assessment: Diet education not indicated. Nutrition Care Level: low Signed: Blessing Knight, MS, RD, LD
[2018-07-25] MEDS ORDERED: PROPOFOL IV EMULSION 10 MG/ML 20 ML VIAL ONE (17:43)
[2018-07-25] MEDS ORDERED: LIDOCAINE HCL 2% LOCAL INJ 5 ML SDV VIAL INJ ONE (17:43)
[2018-07-25] MEDS: ASPIRIN 81 MG CHEW TAB PO SCH (18:05)
[2018-07-25] MEDS ORDERED: MIDAZOLAM HCL 2 MG/2 ML VIAL ONE (18:54)
--- NOTE | 2018-07-25 20:24 | Progress Note ---
DATE: 07/25/2018 Cardiology Progress Note BODY AFTER ALLERGIES: SUBJECTIVE: MAX with attempted cardioversion this morning, however, the patient returned to atrial fibrillation within seconds of cardioversion. OBJECTIVE: VITAL SIGNS: Temperature afebrile, pulse 97, respiratory rate 19, blood pressure 118/54, and saturating 95% on room air. GENERAL: An obese white female, in no acute distress. CARDIOVASCULAR: Irregular rate and rhythm. No murmurs, rubs, or gallops. LUNGS: Clear to auscultation anteriorly. ABDOMEN: Soft, nontender, nondistended. No masses. NEURO AND PSYCH: Alert and oriented to person, place, and time. Normal affect. INPATIENT MEDICATIONS: Reviewed. LABORATORY DATA: Reviewed. IMAGING DATA: Reviewed. TELEMETRY DATA: Reviewed, shows atrial fibrillation with RVR, heart rate now improved from 97 to 105, down from about 130 this morning. ASSESSMENT: Atrial fibrillation with rapid ventricular response. PLAN: Continue digoxin. Increase metoprolol to 50 mg q.6 hours. Continue apixaban. Okay to discharge likely tomorrow from cardiovascular standpoint once heart rate is little better controlled. Thank you for this consult. We will continue to follow. MD SAQIB Bennett/MARLIN /[id number]
[2018-07-25] MEDS: ATORVASTATIN 20 MG TAB PO SCH (21:55)
[2018-07-26] MEDS: PIPER-TAZ 3.375 GM 50 ML IV SCH ×2 (00:57→05:43)
[2018-07-26] MEDS: METOPROLOL TARTRATE 25 MG TAB PO SCH ×2 (00:58→05:43)
[2018-07-26 04:28] VITALS: BP 120/76
[2018-07-26 05:33] LABS: BASOPHILS # (AUTO) 0.1 (0.0-0.1); BASOPHILS % 0.7 % (0.0-1.0); EOSINOPHILS # (AUTO) 0.3 (0.0-0.4); EOSINOPHILS % 3.8 % (0.0-6.0); HEMATOCRIT 29.7 % (34.2-44.1); HEMOGLOBIN 9.3 g/dL (12.0-16.0); LYMPHOCYTES # (AUTO) 0.8 (1.0-3.2); LYMPHOCYTES % 11.3 % (18.0-39.1); MEAN CORPUSCULAR HEMOGLOBIN 27.7 pg (28-32); MEAN CORPUSCULAR HGB CONC 31.3 g/dL (31-35); MEAN CORPUSCULAR VOLUME 88.4 fL (81-99); MONOCYTES # (AUTO) 0.7 (0.2-0.8); MONOCYTES % 9.6 % (4.4-11.3); NEUTROPHILS # (AUTO) 5.2 (2.1-6.9); NEUTROPHILS % 73.9 % (38.7-80.0); PLATELET COUNT 408 x10e3/uL (140-360); RED BLOOD COUNT 3.36 x10e6/uL (3.6-5.1); RED CELL DISTRIBUTION WIDTH 13.8 % (11.7-14.4)
[2018-07-26 06:10] LABS: ANION GAP 9.1 mmol/L (8-16); BLOOD UREA NITROGEN 9 mg/dL (7-26); BUN/CREATININE RATIO 11 (6-25); CARBON DIOXIDE 23 mmol/L (22-29); CHLORIDE 108 mmol/L (98-107); CREATININE, SERUM 0.83 mg/dL (0.57-1.11); EST GLOMERULAR FILTRATION RATE > 60 ML/MIN (60-); GLUCOSE 156 mg/dL (74-118); POTASSIUM 4.1 mmol/L (3.5-5.1); SODIUM 136 mmol/L (136-145)
[2018-07-26] MEDS: SODIUM CHLORIDE 0.9% 1000ML 1,000 ML IV SCH (07:17)
[2018-07-26 08:00] VITALS: BP 115/56
[2018-07-26] MEDS: HYDROCORTISONE 2.5% PR CRM 1 OZ TUBE PR SCH (08:55)
[2018-07-26] MEDS: FENOFIBRATE 145 MG TAB PO SCH (08:55)
[2018-07-26] MEDS: MULTIVITAMINS/MINERALS TAB PO SCH (08:55)
[2018-07-26] MEDS: APIXABAN 5 MG TABLET PO SCH (08:55)
[2018-07-26] MEDS: GLIMEPIRIDE 2 MG TAB PO SCH (08:55)
[2018-07-26] MEDS: SAXAGLIPTIN HCL PO SCH (08:56)
[2018-07-26] MEDS: HC ACETATE/PRAMOXINE HCL 10 GM FOAM RC SCH (08:56)
[2018-07-26] MEDS: INSULIN LISPRO 100 UNIT/1 ML 3ML VIAL SQ SCH (08:56)
[2018-07-26] MEDS: PANTOPRAZOLE SOD 40 MG TABEC PO SCH (08:56)
[2018-07-26] MEDS: DIGOXIN 0.125 MG TAB PO SCH (08:56)
[2018-07-26 08:58] VITALS: BP 115/56
--- NOTE | 2018-07-26 09:10 | NUR ---
Paged Dr. Marcin Ramsey regarding patient being discharged. Awaiting call back
--- NOTE | 2018-07-26 09:22 | NUR ---
Spoke to Dr. Marcin Ramsey, he said OK to continue with discharge today as heart rate is better controlled and patient needs to follow u with her bias binding cutter, Dr. Walden, in two weeks.
[2018-07-26] MEDS ORDERED: METOPROLOL TART50 MG PO (09:28)
[2018-07-26] MEDS ORDERED: DIGOXIN125 MCG PO (09:28)
[2018-07-26] MEDS ORDERED: CEFUROXIME500 MG PO (09:30)
--- NOTE | 2018-07-26 09:40 | NUR ---
Notified Dr. Herring that patient is being discharged and surgery consult has not yet seen the patient, she said patient can be seen as outpatient and OK to continue with discharge home.
--- NOTE | 2018-07-26 10:01 | NUR ---
Prescriptions and discharge instructions were given to the patient , she verbalized understanding, patient was instructed on changed to Metoprolol dose 100mg BID when taking at home, she verbalized understanding, also provided on dc instruction paperwork. She was also instructed to stop taking Coreg, she verbalized understanding. IV to the right AC was removed with tip intact.
== END 2018-07-26 10:02 | disposition home or self-care (01) | DRG 872 ==
LOC: ER 09:52 → ERHOLD 16:17 → MED/SURG2 16:49
PROVIDERS: ADMIT Internal Medicine; ATTEND Internal Medicine
PROC: 5A2204Z Restoration of Cardiac Rhythm, Single (ICD-10-PCS; principal; 2018-07-25)
PROC: B24BZZ4 Ultrasonography of Heart with Aorta, Transesophageal (ICD-10-PCS; 2018-07-25)
DX: A41.9 Sepsis, unspecified organism (principal); N10 Acute pyelonephritis; N17.9 Acute kidney failure, unspecified; Z68.41 Body mass index [BMI] 40.0-44.9, adult; E11.9 Type 2 diabetes mellitus without complications; E03.9 Hypothyroidism, unspecified; K21.9 Gastro-esophageal reflux disease without esophagitis; Z90.49 Acquired absence of other specified parts of digestive tract; Z82.49 Family history of ischemic heart disease and other diseases of the circulatory system; I48.2 Chronic atrial fibrillation; E78.5 Hyperlipidemia, unspecified; I11.0 Hypertensive heart disease with heart failure; I50.9 Heart failure, unspecified; E66.9 Obesity, unspecified; D64.9 Anemia, unspecified; N28.1 Cyst of kidney, acquired; K64.9 Unspecified hemorrhoids; B96.1 Klebsiella pneumoniae [K. pneumoniae] as the cause of diseases classified elsewhere; Z79.84 Long term (current) use of oral hypoglycemic drugs
CPT/HCPCS: 36415; 71046; 74177; 80048; 80053; 80061; 81001; 82550; 82553; 82948; 83036; 83518; 83605; 83690; 83735; 83880; 84100; 84439; 84443; 84484; 85025; 85610; 87040; 87070; 87086; 87186; 87400; 93005; 93312; 93320; 93325; 99284; J0696; J2001; J2250; J2543; J7030; Q9967

== ENCOUNTER → 2018-10-06 | Outpatient (CLI) | payer BC ==
[~2018-10-06] MED LIST changes: +CEFUROXIME500 MG PO; +CIPRO500 MG PO; +DIGOXIN125 MCG PO; +FENOFIBRATE145 MG PO; +FUROSEMIDE20 MG PO; +GLIMEPIRIDE2 MG PO; +GLUCOSAMINE1000 MG PO; +LISINOPRIL10 MG PO; +METFORMIN HCL500 MG PO; +METOPROLOL TART50 MG PO; +NEXIUM40 MG PO; +SYNTHROID50 MCG PO; +TRADJENTA5 MG PO; +ULORIC40 MG PO; +eliquis PO
--- NOTE | 2018-10-06 20:27 | Diagnostic Imaging Report ---
Renal Scan with Lasix Washout Clinical information: 40 F with UTI and hematuria Technique: Following intravenous administration of 10 mCi of Tc-99m MAG3, dynamic images of the kidneys in the posterior projection were obtained through 40 minutes. Lasix 40 mg was administered intravenously at 10 minutes post injection of the tracer. Report: Left kidney: Perfusion of the left kidney is prompt. The kidney has a reniform shape although overall appears reduced in size. Extraction of tracer from the blood pool is normal. Clearance of tracer from the renal parenchyma is prompt. The pelvicalyceal system is not dilated. Physiologic pooling of tracer is seen within the pelvicalyceal system. Drainage of tracer from the pelvicalyceal system is prompt and adequate prior to administration of Lasix. No significant stasis of tracer is seen within the left ureter. Right kidney: Perfusion to the right kidney is prompt. The right kidney has a reniform shape although overall appears reduced in size. Extraction of tracer by the renal parenchyma is normal. Clearance of tracer from the renal parenchyma is prompt. The pelvicalyceal system is not dilated. Physiologic pooling of tracer is seen within the pelvicalyceal system. Drainage of tracer from the pelvicalyceal system is prompt and adequate prior to administration of Lasix. No significant stasis of tracer is seen within the right ureter. Differential renal function: The left kidney contributes 52% of total renal function and the right kidney contributes 48% (normal 43-57%). Impression: 1. Mild reduction in overall size of kidney may be related to early medical renal disease. The function of the left kidney is generally normal. No hydronephrosis is present. No physiologically significant obstruction of the renal collecting system is present. 2. Mild reduction in overall size of kidney may be related to early medical renal disease. The function of the right kidney is generally normal. No hydronephrosis is present. No physiologically significant obstruction of the renal collecting system is present. 3. The differential renal function is preserved. Signed by: Dr. Leslee Morales M.D. on 10/06/2018 8:24 PM
== END ==
LOC: NM 12:18
PROVIDERS: ATTEND Urology
DX: R31.21 Asymptomatic microscopic hematuria (principal); N39.0 Urinary tract infection, site not specified
CPT/HCPCS: 78708; A9562

== ENCOUNTER → 2019-04-24 | Outpatient (CLI) | payer BC ==
--- NOTE | 2019-04-24 09:52 | Diagnostic Imaging Report ---
Ultrasound of the Kidneys, 04/24/2019. Clinical History: UTI. Discussion: Sonographic evaluation of the kidneys is performed. Right kidney: 10.3 cm in length, normal in size, with cortical thickness of 1.5 cm. Normal cortical echogenicity. No mass. No shadowing calculus. No hydronephrosis. Left kidney: 10.3 cm in length, normal in size, with cortical thickness of 1.4 cm. Normal cortical echogenicity. No mass. No shadowing calculus. No hydronephrosis. Limited Doppler evaluation demonstrates normal color Doppler flow within bilateral renal liliana. Fluid: No perinephric fluid. Bladder: Unremarkable. IMPRESSION: Normal ultrasound of the kidneys. Signed by: Néstor Byrnes MD on 04/24/2019 9:49 AM
== END ==
LOC: US 08:26
PROVIDERS: ATTEND Urology
DX: N39.0 Urinary tract infection, site not specified (principal)
CPT/HCPCS: 76770

== ENCOUNTER → 2019-08-28 | Outpatient (CLI) | payer BC ==
--- NOTE | 2019-08-28 11:42 | Diagnostic Imaging Report ---
EXAM: Renal Ultrasound INDICATION: ^CYST OF KIDNEY COMPARISON: None TECHNIQUE: Transverse and longitudinal images of the kidneys and bladder were obtained. FINDINGS: Right Kidney: Length: 10.5 cm Appearance: Normal echogenicity. Collecting system: No hydronephrosis Stones: None Cyst/Mass: None Left Kidney: Length: 10.4 cm Appearance: Normal echogenicity. Collecting system: No hydronephrosis Stones: None Cyst/Mass: None Bladder: No mass or calculi. Right ureteral jet visualized. Prevoid volume estimate of 114 cc. IMPRESSION: No hydronephrosis or renal calculi. No renal cysts. Signed by: Dee Peck MD on 08/28/2019 11:39 AM
== END ==
LOC: US 10:29
PROVIDERS: ATTEND Urology
DX: N28.1 Cyst of kidney, acquired (principal)
CPT/HCPCS: 76770

== ENCOUNTER → 2020-01-23 | Outpatient (CLI) | payer BC | LOC: MAMMO 09:52 | PROVIDERS: ATTEND Internal Medicine | DX: Z12.31 Encounter for screening mammogram for malignant neoplasm of breast (principal) | CPT/HCPCS: 77067 ==

== ENCOUNTER → 2020-06-27 | Outpatient (CLI) | payer BC | LOC: NM 12:59 | PROVIDERS: ATTEND Urology | DX: R31.0 Gross hematuria (principal) | CPT/HCPCS: 78707; A9562 ==

== ENCOUNTER → 2023-11-18 | Outpatient (REF) | payer MEDICARE | LOC: MAMMO 08:30 | PROVIDERS: ATTEND Internal Medicine | DX: Z12.31 Encounter for screening mammogram for malignant neoplasm of breast (principal) ==

== ENCOUNTER → 2024-08-31 | Outpatient (REF) | payer MEDICARE | LOC: MAMMO 08:08 | PROVIDERS: ATTEND Internal Medicine | DX: Z12.31 Encounter for screening mammogram for malignant neoplasm of breast (principal) | CPT/HCPCS: 77067 ==